=== PATIENT | female | born 1980 | race Caucasian/White ===

== ENCOUNTER 2023-07-08 11:09 | Emergency (ER) | payer BC ==
[~2023-07-08] VITALS: Ht 152.4 cm; Wt 65.3 kg
[2023-07-08 11:27] VITALS: BP_SYST 136; PULSE 69; RESP 22; TEMP 98.3; O2SAT 98
[2023-07-08 11:48] LABS: BILIRUBIN,URINE NEGATIVE (NEGATIVE); BLOOD, URINE 3+ (NEGATIVE); CLARITY/URINE SL CLOUDY (CLEAR); COLOR,URINE YELLOW (YELLOW); GLUCOSE,URINE NEGATIVE (NEGATIVE); KETONES,URINE NEGATIVE (NEGATIVE); LEUKOCYTE ESTERASE ,URINE TRACE (NEGATIVE); NITRITE, URINE NEGATIVE (NEGATIVE); PROTEIN URINE NEGATIVE (NEGATIVE); UROBILINOGEN,URINE 0.2 (0.2-1.0)
[2023-07-08 12:12] LABS: BACTERIA,URINE FEW /HPF (None Seen)
[2023-07-08] MEDS ORDERED: IBUPROFEN 800 MG TABLET PO ONE (14:30)
[2023-07-08] MEDS ORDERED: KETOROLAC TROMETHAMINE 60 MG/2 ML VIAL IM ONE ×2 (14:30→16:34)
[2023-07-08 14:48] LABS: BASOPHILS % (AUTO) 0.2 % (0.0-2.0); HEMATOCRIT 40.6 % (36-48); HEMOGLOBIN 14.5 g/dL (12.0-16.0); LYMPHOCYTES # (AUTO) 0.9 K/uL (1.0-5.5); LYMPHOCYTES % (AUTO) 10.7 % (20.5-51.5); MEAN CORPUSCULAR HEMOGLOBIN 34 pg (27-31); MEAN CORPUSCULAR HGB CONC 36 % (32-36); MEAN CORPUSCULAR VOLUME 96 fL (79.0-98.0); MONOCYTES # (AUTO) 0.2 K/uL (0.0-1.0); MONOCYTES % (AUTO) 2.1 % (1.7-9.3); NEUTROPHILS # (AUTO) 7.3 K/uL (1.8-7.7); PLATELET COUNT (AUTO) 330 K/uL (130-430); RED BLOOD CELL COUNT(AUTO) 4.24 MIL/uL (4.2-6.2); RED CELL DISTRIBUTION WIDTH 12.7 % (9.0-15.0); WHITE BLOOD COUNT (AUTO) 8.4 K/uL (4.8-10.8)
[2023-07-08 14:55] LABS: ANION GAP 8 (5-15); CALCIUM 9.2 mg/dL (8.4-11.0); CARBON DIOXIDE 28 mmol/L (23-29); CHLORIDE 102 mmol/L (98-107); CREATININE 0.73 mg/dL (0.55-1.30); GFR AFRICAN AMERICAN 113 mL/min (>90); GLUCOSE 127 mg/dL (74-106); POTASSIUM 4.4 mmol/L (3.5-5.1); SODIUM SERUM 138 mmol/L (136-145); UREA NITROGEN, BLOOD 13 mg/dL (8-21)
[2023-07-08 14:58] LABS: GFR NON AFRICAN-AMERICAN 93 mL/min (>90)
[2023-07-08 14:59] LABS: ACETONE, SERUM NEGATIVE (NEGATIVE); SERUM HCG (QUALITATIVE) NEGATIVE (NEGATIVE)
[2023-07-08 15:09] LABS: ALANINE AMINOTRANSFERASE 35 U/L (12-78); ALBUMIN 4.3 g/dL (3.4-4.8); AMYLASE 56 U/L (0-100); ASPARTATE AMINOTRANSFERASE 7 U/L (10-37); BILIRUBIN,DIRECT 0.1 mg/dL (0.0-0.3); LIPASE 55 U/L (16-77); TOTAL BILIRUBIN 0.2 mg/dL (0.0-1.0); TOTAL PROTEIN, SERUM 7.9 g/dL (6.4-8.3)
[2023-07-08] MEDS ORDERED: IBUPROFEN 800 MG TABLET ONE (16:35)
[2023-07-08] MEDS ORDERED: IBUP-1969 PO (17:34)
[2023-07-08] MEDS ORDERED: TRAM50TA2 PO ×2 (17:34→17:37)
[2023-07-08 17:56] VITALS: BP_SYST 128; PULSE 77; RESP 19; TEMP 98.5; O2SAT 100
== END 2023-07-08 17:56 | disposition home or self-care (01) ==
LOC: SED 11:09
DX: N23 Unspecified renal colic (principal); R11.0 Nausea; Z79.899 Other long term (current) drug therapy
CPT/HCPCS: 99285; 74176; 80076; 80048; 81001; 82009; 82150; 84703; 83690; 85025; 87086; 36415; 76376; 96372; 83605; 82397; 81000; 81015; J1885